=== PATIENT | female | born 1960 | race Caucasian/White ===

== ENCOUNTER 2016-05-28 08:46 | Observation (INO) ==
[2016-05-28] MEDS ORDERED: BENADRYL IV ONE (09:39)
[2016-05-28] MEDS ORDERED: NS 1,000 ML IV ONE ×2 (09:39→13:53)
[2016-05-28 10:09] LABS: MANUAL DIFF NEEDED? NO
[2016-05-28 10:12] LABS: BASO% 0.7 % (0.0-0.8); EOS# 0.04 X1000 (0.0-0.7); EOS% 0.9 % (0.0-10.0); HEMATOCRIT 39.7 % (37.0-47.0); HEMOGLOBIN 13.6 g/dL (12.0-16.0); LYMPH% 20.9 % (20.5-51.1); MCH 32.8 PG (27-31); MCHC 34.3 g/dL (33-37); MCV 95.7 FL (81-99); MONO# 0.51 X1000 (0.11-0.59); MONO% 11.8 % (1.7-9.3); MPV 11.3 FL (7.4-10.4); NEUT% 65.7 % (42.2-75.2); PLT 206 X1000 (130-400); RBC 4.15 XMIL (4.2-5.4)
[2016-05-28 10:27] LABS: AGAP 16; ALBUMIN 4.7 g/dL (3.5-5.0); ALKALINE PHOSPHATASE 85 U/L (32-104); BUN 18 mg/dL (8-22); CALCIUM 9.3 mg/dL (8.8-10.2); CHLORIDE 98 mmol/L (98-107); COSMO 283; GOT 43 U/L (10-30); GPT 26 U/L (10-36); POTASSIUM 4.6 mmol/L (3.5-5.1); SODIUM 141 mmol/L (136-145); TCO2 27 mmol/L (25-35); TOTAL BILIRUBIN 1.06 mg/dL (0.20-1.00); TOTAL PROTEIN 7.5 g/dL (6.3-8.3)
--- NOTE | 2016-05-28 10:58 | Diag Imaging Result Document ---
PROCEDURE NAME: HEAD W/O CONTRAST - 05/28/2016 CT BRAIN WITHOUT: FINDINGS: No parenchymal hemorrhage. No epidural or subdural hematoma. No subarachnoid hemorrhage. No mass identified on this noncontrasted exam. Tiny ischemic area in the right parietal lobe laterally. No hydrocephalus. No sinus opacification. No air fluid levels. IMPRESSION: 1. No hemorrhage. 2. Small ischemic area in the right parietal lobe without a significant change compared to the prior exam. A preliminary report was called to the emergency room at 10:30 a.m.
[2016-05-28] MEDS ORDERED: ATIVAN IV ONE (11:33)
--- NOTE | 2016-05-28 12:17 | PROVIDER DOCUMENTATION ---
This chart was entered by Geovanna Torres Scribe, acting as scribe for Topher Parker MD. HPI-General Adult - General Chief Complaint: General Adult Stated Complaint: poss reaction to med Time Seen by Provider: 05/28/16 09:27 Source: patient Allergies/Adverse Reactions: Patient Allergies Allergy/AdvReac Type Severity Reaction Status Date / Time morphine Allergy Intermediate RASH Verified 05/28/16 09:03 shellfish derived Allergy Mild ITCHING Verified 05/28/16 09:03 trazodone Allergy Mild aches Verified 05/28/16 09:03 zolpidem tartrate * Allergy Unknown Verified 05/28/16 09:03 [From Ambien] Home Medications: Home Medication List Medication Instructions Recorded Confirmed Last Taken Type Duloxetine HCl [Duloxetine HCl] 60 mg PO DAILY 05/28/16 05/28/16 05/28/16 07:00 History Hydrocodone/APAP 10 mg/325 mg 1 each PO DIRECTED PRN 05/28/16 05/28/16 History [[place]-10] Hydrocodone/APAP 7.5 mg/325 mg 1 each PO DIRECTED 05/28/16 05/28/16 Unknown History [[place]-7.5] Progesterone,Micronized 300 mg PO QHS 05/28/16 05/28/16 05/27/16 History [Progesterone] - History of Present Illness -Gen Adult Nature of Presenting Problems: 56 y/o F presents to ED cc of twitching/spasms x 1 day. Pt states the twitching is causing for her to have neck pain. Has hx of herniated disc. Pt was recently dx with lupus and doc increased Cymbalta dosage on May 18 from 30mg to 60mg. Pt reports pt has been unsteady on feet and he noticed L eye droop yesterday.Pt also states pt shaking has been worse in hands yesterday. Pt reports having L sided facial numbness x 6 wk ago. Pt is alert and oriented on exam. Location of Pain/Injury: reports: neck (due to "twitching") Pain Radiation: reports: no radiation Quality of Pain: reports: aching Severity: reports: mild Onset/Duration: reports: just prior to arrival Timing: reports: still present Context/Activities at Onset: reports: light activity Modifying Factors: improves with: nothing Associated Symptoms: reports: back/neck pain, other (twitching/spasms). denies : chest pain, diaphoresis, fever/chills, loss of appetite, shortness of breath Similar Symptoms Previously?: No Recently seen or treated by another doctor?: Yes Review of Systems - Adult - REVIEW OF SYSTEMS - ADULT Constitutional: denies: chills, fever Eyes: denies: dry eyes, blurred vision Ears, Nose, Mouth & Throat: denies: ear pain, throat pain Cardiovascular: denies: chest pain, palpitations Respiratory: denies: cough, shortness of breath Gastrointestinal: denies: abdominal pain, diarrhea, nausea, vomiting Genitourinary: denies: discharge, frequency Musculoskeletal: reports: other (twitching/spasms). denies: bone pain, back pain Neurological: reports: loss of balance, numbness (L sided facial weakness x 6 wk ago.). denies: dizziness/vertigo, headache/migraines Past History - Adult - PAST MEDICAL HISTORY-ADULT Review of Records: reports: Old Records Reviewed, Nursing Assessment Review Cardiovascular: reports: angina (unstable) Gastrointestinal: reports: GERD (possible), other (possible pill induced esophagitis) Obstetrical/Gynecological: reports: denies history Genitourinary: reports: kidney stones, other (right collapsed kidney) Other Conditions: reports: denies history - PRIOR SURGERIES/PROCEDURES Surgical/Procedure History: reports: BTL, , orthopedic (extremity) ( knee/hip), other - IMMUNIZATION STATUS Childhood Immunizations: UTD, See Nurse Assessment Flu Vaccine: See Nurse Assessment - FAMILY HISTORY Family History: CAD under 55yo (status post [place] @ age of 56) - SOCIAL HISTORY Smoking: denies Substance Use: denies Physical Exam-General - PHYSICAL EXAM-ADULT Initial Vital Signs Reviewed: Yes - CONSTITUTIONAL General Appearance: appears well, alert, no apparent distress - EYES Eyes: pink conjunctivae - HEAD, EARS, NOSE, MOUTH & THROAT HENMT: moist mucous membranes, normal ENT inspection - RESPIRATORY Respiratory: lungs clear, normal breath sounds - CARDIOVASCULAR Cardiovascular: normal peripheral pulses, regular rate, rhythm, no edema - GASTROINTESTINAL (ABDOMEN) Abdominal Exam: normal bowel sounds, non tender, soft - LYMPHATIC Lymphatic: no adenopathy - MUSCULOSKELETAL Back Exam: normal inspection, no CVA tenderness, no vertebral tenderness Extremity: normal range of motion, non-tender - SKIN Integumentary: normal color, normal turgor, warm/dry - NEUROLOGIC Neurologic: marketing database coordinator II-XII nml as tested, grossly normal, no motor/sensory deficits , other (twitching/shaking/spasms). negative: abnormal cerebellar tests, abnormal marketing database coordinator II-XII, facial droop, focal weakness, motor weakness, sensory deficit - PSYCHIATRIC Psych/Mental Status: oriented x 3 Progress - PLAN OF CARE/RESULTS Progress/Plan/Lab Results: Vital Signs - 8 hr 05/28/16 08:50 Temperature 98.0 F Pulse Rate 82 Respiratory Rate 18 Blood Pressure 145/71 O2 Sat by Pulse Oximetry 100 Orders Category Date Time Status IV Insertion ORDERED Care 05/28/16 09:39 Active HEAD W/O CONTRAST [CT] Stat Exams 05/28/16 09:40 Ordered CBC WITH ELECTRONIC DIFF [HEME] Stat Lab 05/28/16 09:39 Uncollected COMPREHENSIVE METABOLIC PANEL [CHEM] Stat Lab 05/28/16 09:39 Uncollected 0.9% Sodium Chloride Inj [Ns] 1,000 ml Med 05/28/16 09:39 Active IV 999 mls/hr Diphenhydramine [Benadryl] Med 05/28/16 09:39 Discontinued 25 mg IV NOW ONE PLAN: IV , HEAD CT, LABS, MEDICATION TO HELP WITH TWITCHING Result Diagrams: 05/28/16 09:58 05/28/16 09:58 - REASSESSMENT Reassessment #1 Time Reassessed: 11:28 Status: unchanged (Pt still shaking/twitching in neck / new med will be ordered) Reassessment #2 Time Reassessed: 11:41 Status: unchanged (pt is aware of being admitted to hospital) - CT/MRI 1 CT Study: Head Impression: Normal (no hemorrhage / small ischemic area to the r parital lob wihtout a signiificany change compared to the prior exam) CT Results: see impression - Dr. Hayes(radiologist) - CONSULTS/PCP/HOSPITALIST Notification #1 *Consult/PCP/Hospitalist*: Dr. Alvarez(PCP) Time Discussed: 11:30 Consult Disposition: Admit Departure - Departure Time of Disposition Decision: 11:37 DIAGNOSIS: Tremor Disposition: ADMITTED INPATIENT 09 Certified Medical Emergency: Emergent Condition: Stable Referrals and Follow-Ups: Jossue Alvarez MD [Primary Care Provider] - This chart was documented by the indicated scribe, (Geovanna Torres Scribe) and accurately reflects the services I performed and decisions made by me, Topher Parker MD, as attested by the provider's signature.
[2016-05-28] MEDS ORDERED: TYLENOL PO PRN (13:53)
--- NOTE | 2016-05-28 15:48 | Diag Imaging Result Document ---
PROCEDURE NAME: MRA BRAIN W/O CONTRAST - 05/28/2016 MR ANGIOGRAPHY OF THE [place]. MIP IMAGES OBTAINED. FINDINGS: There is normal flow in each distal internal carotid artery. Normal filling of the anterior and middle cerebral arteries. Normal flow in the basilar artery and both posterior cerebral arteries. No arterial occlusion. No distinct stenosis. No aneurysm. IMPRESSION: Normal MR angiography of the [place]. A preliminary report was given at 3:35 p.m.
--- NOTE | 2016-05-28 16:22 | Diag Imaging Result Document ---
PROCEDURE NAME: MRA NECK W/CONT - 05/28/2016 MR ANGIOGRAPHY OF THE NECK. TECHNIQUE: MIP images obtained. FINDINGS: There is normal flow in the right common carotid artery. No stenosis. Normal filling of the internal carotid artery. No stenosis. Normal flow in the right vertebral artery. There is normal flow in the left common carotid artery. No stenosis. Normal flow in the internal carotid artery without a stenosis. Normal flow in the vertebral artery. IMPRESSION: No stenosis within either common carotid artery or within either internal carotid artery.
[2016-05-28] MEDS: NS 1,000 ML IV SCH (20:18)
[2016-05-28] MEDS: BENADRYL IV PRN (21:13)
[2016-05-28] MEDS: ATIVAN IV PRN (21:53)
[2016-05-29] MEDS: ATIVAN IV PRN (02:06)
[2016-05-29] MEDS: NS 1,000 ML IV SCH (05:17)
[2016-05-29] MEDS: BENADRYL IV PRN (05:17)
[2016-05-29] MEDS ORDERED: KLONOPIN PO PRN (08:39)
--- NOTE | 2016-05-29 09:08 | HISTORY AND PHYSICAL ---
PRIMARY CARE PHYSICIAN: Dr. Jossue Alvarez. CHIEF COMPLAINT: Intractable tumor. HISTORY OF PRESENT ILLNESS: This is a 56-year-old, white female, with past medical history significant for attention deficit disorder, depression, reflux disease, malrotate of the right kidney/renal ptosis, menopause, and recent diagnosis of an elevated double-stranded DNA, presents for evaluation of above mentioned symptoms. Current history of present illness began on May 18. At that time, patient was evaluated by Dr. Vasques. She currently is being evaluated for the possibility of systemic lupus erythematosus. While there, the patient was noted to be in considerable pain. The patient's Cymbalta was increased to 60 mg daily. The patient did reasonably well until 2 to 3 days ago. At that time, patient states she felt poorly. She noted significant fatigue. Yesterday, patient developed a significant tremor. Over the course of the last 24 hours, the tremor progressed. Patient states she did not sleep overnight secondary to the tremor. Because of the patient's significant symptoms, she was evaluated in the emergency department. While there, full evaluation was pursued. A CT scan of the head revealed no hemorrhage. Small ischemic area in the right parietal lobe without significant change compared to prior examination. Laboratory data returned largely unremarkable. The patient was treated with Benadryl followed by Ativan therapy. With this treatment, patient's overall tremor improved considerably, but did not completely resolve. Because of patient's significant symptoms and incomplete resolution while in the emergency department, the patient will be admitted to the hospital for full evaluation and management. Of note, patient has had intermittent chest discomfort over the course of the last several months. The patient states this correlates with an increase in her blood pressure. She denies palpitations, nausea, vomiting, shortness of breath, fevers, or chills. She denies neurological deficits associated with her tremor. PAST MEDICAL HISTORY: 1. History of a nasal fracture in 2003, status post septorhinoplasty. 2. Attention deficit disorder. 3. History of nephrolithiasis. 4. Depression. 5. Tenia corporis. 6. Reflux disease. 7. History of malrotated right kidney with associated ptosis. 8. Menopause. 9. Mitral valve prolapse. 10. History of a positive rheumatoid factor and negative anti CCT. 11. History of positive double-stranded DNA. 12. History of colonic polyps. 13. Proteinuria. 14. Insomnia. CURRENT MEDICATIONS: Cymbalta 60 mg daily. ALLERGIES: Patient states she is allergic to Ambien, amitriptyline, shellfish, and trazodone. SOCIAL HISTORY: Patient denies tobacco, alcohol or illicit drug use. 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 She enjoys art. She exercises by running. FAMILY HISTORY: Father is age 77, reported as healthy. Patient's mother passed at age 74. She had a history of bipolar disorder. REVIEW OF SYSTEMS: A 12 point review of systems was performed. Pertinent positives and negatives noted in history present illness. PHYSICAL EXAMINATION: VITAL SIGNS: Temperature 98.5, heart rate 81, respirations 18, blood pressure is 141/75. GENERAL: Well nourished, well developed, no acute distress. HEENT: Normocephalic, atraumatic. Pupils equal, round, react to light. Extraocular muscles intact. Sclerae anicteric. [place] conjunctivae. Oral and nasopharynx clear without exudate. NECK: Supple. No lymphadenopathy. No thyromegaly. No bruits auscultated. CARDIOVASCULAR: Regular rate and rhythm. No significant murmurs, rubs, or gallops. PULMONARY: Clear to auscultation bilaterally. ABDOMEN: Soft, nontender, nondistended. Positive bowel sounds. EXTREMITIES: Moves all extremities well. No significant clubbing, cyanosis, or edema. NEUROLOGIC: Cranial nerves 2 through 12 grossly intact. Motor and sensory grossly intact. PSYCHOLOGIC: Appropriate. LABORATORY DATA: 1. White blood cell count 4.31, hemoglobin 13.6, hematocrit 39.7, platelet count 206,000. Sodium 141, potassium 4.6, chloride 98, bicarb 27, BUN 18, creatinine 0.5, glucose 93, calcium 9.3, total bilirubin 1.06, total protein is 7.5, albumin 4.7, alkaline phosphatase 85, AST 43, ALT 26. CT scan of the head revealed no hemorrhage. Small ischemic area in the right parietal lobe without a significant change compared to prior examination. 2. MRI of the brain returned with a normal angiography of the [place]. 3. MRA of the neck revealed no stenosis within either common carotid or with either internal carotid artery. ASSESSMENT AND PLAN: A 56-year-old, white female with past medical history as noted, presents for evaluation for of intractable tremor. The tremor lasted approximately 16 to 24 hours. The symptoms were quite severe. The patient was treated with Benadryl and Ativan while in the emergency department with some improvement. Upon my arrival, there was no witnessed tremor, however, the patient continued to have the sensation of underlying tremor. The patient will be admitted to the hospital for full evaluation and management of this condition. 1. Admit to General Medicine. 2. Intractable tremor - as described, this certainly is improving. Patient was given both Benadryl and Ativan. We will continue with these as needed overnight. I am concerned that this may have been precipitated by an increase in her Cymbalta dosage. We will hold the Cymbalta tonight. We will address resuming this as described below. We will remain aware that a new underlying diagnosis of systemic lupus erythematosus certainly could play a role, however, this seems less likely. 3. Abnormal CT scan of the head - the patient has had similar findings in the past. We will plan to check an MRI of the brain to rule out underlying pathology. 4. Anxiety/depression/fibromyalgia - patient is currently being treated with Cymbalta therapy. At this point, I do not feel abruptly discontinuing this as appropriate. We will plan to decrease dosage to 20 mg daily tomorrow. Once again, this will be followed. 5. Possible systemic lupus erythematosus - this is a new working diagnosis. While this could be playing a role in her underlying tremor, this seems less likely. We will aggressively manage as above. 6. Fluid electrolytes nutrition. We will monitor electrolytes. Normal saline at 75 mL an hour. Regular diet, prophylaxis. Patient will be placed on SCDs. cc: Jossue Alvarez MD
--- NOTE | 2016-05-29 09:52 | Diag Imaging Result Document ---
PROCEDURE NAME: MRI BRAIN W W/O CONTRAST - 05/29/2016 MRI BRAIN WITHOUT AND WITH INTRAVENOUS CONTRAST: COMPARISON: Head CT 05/28/2016. FINDINGS: The ventricles and sulci are normal in size and contour. No intracranial mass or hemorrhage. No abnormal signal. No abnormal contrast enhancement. Midline structures are unremarkable. IMPRESSION: Negative exam.
[2016-05-29 11:13] VITALS: BP 130/74
--- NOTE | 2016-05-29 18:36 | DISCHARGE SUMMARY ---
ADMISSION DATE: 05/28/2016 DISCHARGE DATE: 05/29/2016 ADMISSION DIAGNOSIS: Intractable tremor. DISCHARGE DIAGNOSES: 1. Intractable tremor, likely secondary to medications. 2. Abnormal CT scan of the head, with a normal MRI/CT scan of the head. 3. Anxiety/depression/fibromyalgia, present on arrival. 4. Possible systemic lupus erythematosus, present on arrival. CONSULTATIONS: None. PROCEDURES: 1. CT scan of the head was performed on 05/28/2016, which revealed no hemorrhage. Small ischemic area in the right parietal lobe without a significant change compared to the prior examination. 2. MRA of the brain was performed on 05/28/2016, which revealed normal MR angiography of the [place]. 3. MRA of the neck was performed on 05/28/2016, which revealed no stenosis within either common carotid artery or within either internal carotid artery. 4. MRI of the brain was performed on 05/29/2016, which revealed negative examination. HISTORY AND PHYSICAL EXAMINATION: See admit note. PHYSICAL EXAMINATION PRIOR TO DISCHARGE: Vital Signs: Temperature 98.6, heart rate 77, respirations 20, blood pressure is 130/74. General: Well nourished, well developed, no acute distress. Cardiovascular: Regular rate and rhythm. No significant murmurs, rubs, or gallops. Pulmonary: Clear to auscultation bilaterally. Abdomen: Soft, nontender, nondistended. Positive bowel sounds. Extremities: Moves all extremities well. No significant clubbing, cyanosis, or edema. Dermatologic: Evaluation reveals no evidence of rash. LABORATORY DATA: Prior to discharge: None. HOSPITAL COURSE: Patient was admitted as per history and physical examination. Hospital course per condition is as follows. 1. Intractable tremor-upon admission, patient was noted to have an intractable tremor. Patient was treated with Benadryl and Ativan while in the emergency department. Patient did achieve some improvement. With time, patient's overall condition improved considerably. It was felt this likely was secondary to a combination of an increased dose of Cymbalta and underlying stress. The patient's Cymbalta was decreased from 60 mg to 30 mg daily. Patient will be discharged home with as needed clonazepam therapy. Should patient have a recurrence or persistence of symptoms, we will consider neurologic consultation. We will follow this closely as an outpatient. 2. Abnormal CT scan of the head-upon admission, patient's CT scan demonstrated possible ischemia. MRI, however, confirmed no evidence of significant disease. We will remain aware. 3. Anxiety/depression/fibromyalgia-patient is currently being treated by Dr. Vasques, with Cymbalta therapy. As above, patient's Cymbalta was increased to 60 mg on a daily basis. At time of discharge, we had decreased down to 30 mg secondary to a possible Cymbalta associated tremor. This will be followed as an outpatient as well. We will add as needed clonazepam for exacerbation of her anxiety. 4. Possible systemic lupus erythematosus-patient currently is being evaluated by Dr. Vasques. We will defer management. DISCHARGE CONDITION: Good. DISPOSITION: Discharge to home. MEDICATIONS: 1. Cymbalta 30 mg daily. 2. Clonazepam 0.5 mg 1/2 to 1 tablet twice daily as needed. 3. Progesterone 300 mg at bedtime. FOLLOWUP: The patient is to follow with me in approximately 1-2 weeks. cc: Jossue Alvarez MD
== END 2016-05-29 18:09 | disposition home or self-care (01) ==
LOC: ED 08:46 → 4N 08:46
PROVIDERS: ADMIT Internal Medicine; ATTEND Internal Medicine